=== PATIENT | female | born 1945 | race Caucasian/White ===

== ENCOUNTER 2017-03-17 21:09 | Emergency (ER) | payer OTHER ==
[~2017-03-17 21:09] MED LIST: ANTIVERT25 MG PO; BENZONATATE200 MG PO; HYDRODIURIL 112.5 M1 PO; LOSARTAN POTASS25 MG PO; NASONEX0.05 MG/Ac NS; PRAVASTATIN SOD20 MG PO; ZITHROMAX Z-PA250 M1 PO; ZOFRAN 4 MG TABL4 MG PO; ZOFRAN ODT4 M1 SL
[2017-03-18 01:06] LABS: ABSOLUTE BASOPHIL COUNT 0 /CUMM (0.0-0.2); ABSOLUTE EOSINOPHIL COUNT 0.7 /CUMM (0.0-0.7); ABSOLUTE GRANULOCYTE CT 3.5 /CUMM (1.4-6.5); ABSOLUTE LYMPH COUNT 2.7 /CUMM (1.2-3.4); ABSOLUTE MONOCYTE COUNT 0.6 /CUMM (0.10-0.60); BASOPHIL % 0.3 % (0.0-2.0); GRANULOCYTE % 46.9 % (42.2-75.2); HEMATOCRIT 37.8 % (37-47); MEAN CORPUSCULAR HGB 29.5 PG (27.0-31.0); MEAN CORPUSCULAR VOLUME 86.8 FL (81.0-99.0); MEAN PLATELET VOLUME 9.6 FL (7.4-10.4); PLATELET COUNT 204 /CUMM (130-400); RBC DISTRIBUTION WIDTH 13.3 % (11.5-14.5); RED BLOOD CELL CT 4.36 /CUMM (4.20-5.40); WHITE BLOOD CELL COUNT 7.5 /CUMM (4.8-10.8)
--- NOTE | 2017-03-18 01:52 | ED GI/GU/ABDOMINAL COMPLAINT ---
History of Present Illness General Chief Complaint: Female Urogenital Problems Stated Complaint: VAG PAIN Source: patient Exam Limitations: no limitations Vital Signs & Intake/Output Vital Signs & Intake/Output . Allergies Coded Allergies: Penicillins (UNKNOWN 12/15/15) Sulfa (Sulfonamide Antibiotics) (UNKNOWN 12/15/15) cephalexin (UNKNOWN 12/15/15) ciprofloxacin (From CIPRO) (UNKNOWN 12/15/15) codeine (UNKNOWN 12/15/15) morphine (UNKNOWN 12/15/15) propoxyphene (From DARVON) (VOMITING 06/19/16) venom-honey bee (BEE VENOM (HONEY BEE)) (SWELLING AT SITE 12/15/15) Uncoded Allergies: YELLOW JACKET (Intermediate, SWELLING AT SITE 12/15/15) Reconcile Medications Azithromycin (Zithromax Z-Thien) 250 MG CAP 1 DP PO AD SINUSITIS 2 the first day followed by 1 for days 2-5 Benzonatate 200 MG SGL 1 TAB PO TID COUGH Hydrochlorothiazide (Hydrodiuril 12.5 MG Tab) 12.5 MG CAPSULE 1 CAP PO DAILY BP (Reported) Losartan Potassium 25 MG TAB 1 TAB PO DAILY HEART (Reported) Magnesium Citrate 296 ML SOLUTION 296 ML PO TID PRN CONSTIPATION Meclizine (Antivert) 25 MG TABLET 1 TAB PO 4 TIMES/DAY PRN VERTIGO Mometasone Furoate (Nasonex) 0.05 MG/Actuation SPR 1 SPRAY NS DAILY CONGESTION Nitrofurantoin Monohyd/M-Cryst (Macrobid 100 MG Capsule) 100 MG CAPSULE 1 CAP PO BID URINARY TRACT INFECTION with food Ondansetron (Zofran Odt) 4 MG TAB.RAPDIS 1 TAB SL TID PRN NAUSEA Pravastatin (Pravastatin Sodium) 20 MG TAB 1 TAB PO DAILY CHOLESTEROL ( Reported) Triage Nurses Notes Reviewed? yes ? n Is pt currently ? No Onset: Gradual Duration: day(s):, waxing and waning Timing: recent history Quality/Severity: cramping Location: generalized abdomen Radiation: no radiation Activities at Onset: none Prior Abdominal Problems: similar symptoms Modifying Factors: Worsens With: defecating. Associated Symptoms: abdominal pain, dysuria HPI: 71 yo woman h/o constipation presents with diffuse abdominal cramps, consistent with prior episodes of constipation. She also notes increased urination and dysuria. She has no fever, chills, chest pain, shortness of breath. She is otherwise well. Past History Medical History Any Pertinent Medical History? see below for history Neurological: NONE EENT: NONE Cardiovascular: hypertension, hyperlipidemia Respiratory: NONE Gastrointestinal: NONE Hepatic: NONE Renal: NONE Musculoskeletal: NONE Psychiatric: NONE Endocrine: NIDDM Surgical History Surgical History: non-contributory Psychosocial History What is your primary language Wolof Family History Hx Contributory? No Review of Systems Review of Systems Constitutional: Reports: no symptoms. EENTM: Reports: no symptoms. Respiratory: Reports: no symptoms. Cardiovascular: Reports: no symptoms. GI: Reports: no symptoms. Genitourinary: Reports: no symptoms. Musculoskeletal: Reports: no symptoms. Skin: Reports: no symptoms. Neurological/Psychological: Reports: no symptoms. Hematologic/Endocrine: Reports: no symptoms. Immunologic/Allergic: Reports: no symptoms. All Other Systems: Reviewed and Negative Physical Exam Physical Exam General Appearance: well developed/nourished, mild distress Head: atraumatic, normal appearance Eyes: Bilateral: normal appearance. Ears, Nose, Throat, Mouth: hearing grossly normal Neck: normal inspection, supple, full range of motion Respiratory: normal breath sounds, chest non-tender, no respiratory distress, quiet respiration, lungs clear Cardiovascular: regular rate/rhythm Gastrointestinal: normal bowel sounds, soft, non-tender, no organomegaly Rectal: normal inspection, normal rectal tone, heme negative stool Back: normal inspection Core Measures ACS in differential dx? No Severe Sepsis Present: No Septic Shock Present: No Progress Differential Diagnosis: UTI/pyelo, constipation vs other. Plan of Care: Orders Procedure Date/time Status URINALYSIS 03/18 52 Complete TROPONIN LEVEL 03/18 52 Complete LIPASE 03/18 52 Complete COMPREHENSIVE METABOLIC PANEL 03/18 52 Complete CBC WITHOUT DIFFERENTIAL 03/18 52 Complete AMYLASE 03/18 52 Complete Laboratory Tests 03/18/17 0140: Urine Color YEL, Urine Clarity CLEAR, Urine pH 6.0, Ur Specific [place] 1.020, Urine Protein NEG, Urine Ketones NEG, Urine Nitrite NEG, Urine Bilirubin NEG, Urine Urobilinogen 0.2, Ur Leukocyte Esterase MOD H, Ur Microscopic SEDIMENT EXAMINED, Urine RBC 3-5, Urine WBC 15-25 H, Ur Epithelial Cells RARE, Urine Bacteria FEW H, Urine Hemoglobin TRACE-LYSED, Urine Glucose NEG 03/18/17 0100: Anion Gap 10, Estimated GFR > 60, BUN/Creatinine Ratio 17.5, Glucose 117 H, Calcium 9.9, Total Bilirubin 0.3, AST 21, ALT 38, Alkaline Phosphatase 85, Troponin I < 0.01, Total Protein 6.8, Albumin 4.0, Globulin 2.8, Albumin/ Globulin Ratio 1.4, Amylase 64, Lipase 35, CBC w Diff NO MAN DIFF REQ, RBC 4.36, MCV 86.8, MCH 29.5, RDW 13.3, MPV 9.6, Gran % 46.9, Lymphocytes % 36.3, Monocytes % 7.5, Eosinophils % 9.0 H, Basophils % 0.3, Absolute Granulocytes 3.5, Absolute Lymphocytes 2.7, Absolute Monocytes 0.6, Absolute Eosinophils 0.7, Absolute Basophils 0, PUBS MCHC 34.0 Diagnostic Imaging: Viewed by Me: CT Scan. Discussed w/RAD: CT Scan. Radiology Impression: abd/pelvic ct... left adrenal adenomas, no acute change... full report below. Initial ED EKG: normal axis, normal intervals, normal p-waves, normal QRS complex, normal sinus rhythm Comments: PATIENT: HUSAM GEORGES PRESENT AGE: 71 PATIENT ACCOUNT NO: [id number] : 44 LOCATION: [facility] ORDERING PHYSICIAN: MACK BOWDEN MD SERVICE DATE: 03/18/17 EXAM TYPE: CAT - CT ABD & PELVIS W/O IV CONTRAS EXAMINATION: CT ABDOMEN AND PELVIS WITHOUT CONTRAST CLINICAL INFORMATION: Abdominal pain COMPARISON: 12/01/2009 TECHNIQUE: Multidetector volumetric imaging was performed from the superior aspect of the liver through the pubic symphysis. Sagittal and coronal reformatted images were obtained on the technologist's workstation. DLP: 658 mGy-cm FINDINGS: LUNG BASES: There is a 0.4 cm left lower lobe pulmonary nodule, series 2 image 9. 0.5 cm lingular nodule on series 2 image 5. These are likely unchanged from 2009. LIVER, GALLBLADDER, AND BILIARY TREE: The liver is normal in size, shape, and attenuation. No focal hepatic lesion or biliary ductal dilatation is present. The gallbladder is unremarkable with no evidence of radiopaque gallstones, gallbladder wall thickening, or obvious pericholecystic inflammatory changes. PANCREAS: Fatty atrophy in the region of the head of the pancreas with no focal abnormality. SPLEEN: Unremarkable. ADRENAL GLANDS: Nodular appearance of the left adrenal gland. 2 cm left adrenal adenoma superiorly. 1.5 cm lipid rich adenoma inferiorly. The right adrenal gland is unremarkable. KIDNEYS AND URETERS: The kidneys are normal in size, shape, and attenuation. No hydronephrosis, hydroureter, or calculi seen. No perinephric stranding. BLADDER: Unremarkable. GASTROINTESTINAL TRACT: The stomach and small bowel are unremarkable. No dilated loops of bowel or evidence of obstruction. No colonic wall thickening or inflammatory change. No free air or free fluid. ABDOMINAL WALL: No significant hernia is appreciated. LYMPH NODES: Normal. VASCULAR: Unremarkable. PELVIC VISCERA: The uterus and adnexa are unremarkable. OSSEOUS STRUCTURES: No acute or suspicious osseous abnormality. Mild degenerative changes of the spine. IMPRESSION: No acute findings of the abdomen or pelvis. No acute inflammatory changes. Left adrenal lipid rich adenomas. DICTATED BY: GEE RAINEY,HUBER DATE/TIME DICTATED:03/18/17301 BUS WASHER:GUILLERMO DATE/TIME TRANSCRIBED:03/18/17301 CONFIDENTIAL, DO NOT COPY WITHOUT APPROPRIATE AUTHORIZATION. <Electronically signed in Other Vendor System> SIGNED BY: GEE RAINEY,HUBER 03/18 Departure Departure Disposition: HOME OR SELF CARE Condition: Stable Clinical Impression Primary Impression: Abdominal pain Secondary Impressions: Adenoma of left adrenal gland, Constipation Referrals: CRIS RAINEY,ISIDORO Gallardo (PCP/Family) Departure Forms: Customer Survey General Discharge Information Prescriptions: Current Visit Scripts Nitrofurantoin Monohyd/M-Cryst (Macrobid 100 MG Capsule) 1 CAP PO BID #14 CAP with food Magnesium Citrate 296 ML PO TID PRN CONSTIPATION #6 BOT Comments 03/18/17, 3:38AM.... Pt feels well... labs/ct scan benign.... pt safe for discharge.... gave rx for macrobid for uti. close follow up advised.
[2017-03-18] MEDS ORDERED: MAGNESIUM CITR296 ML PO (02:29)
[2017-03-18] MEDS ORDERED: MACROBID 100 M100 MG PO (02:29)
--- NOTE | 2017-03-18 03:08 | CT SCAN REPORT ---
EXAMINATION: CT ABDOMEN AND PELVIS WITHOUT CONTRAST CLINICAL INFORMATION: Abdominal pain COMPARISON: 12/01/2009 TECHNIQUE: Multidetector volumetric imaging was performed from the superior aspect of the liver through the pubic symphysis. Sagittal and coronal reformatted images were obtained on the technologist's workstation. DLP: 658 mGy-cm FINDINGS: LUNG BASES: There is a 0.4 cm left lower lobe pulmonary nodule, series 2 image 9. 0.5 cm lingular nodule on series 2 image 5. These are likely unchanged from 2010. LIVER, GALLBLADDER, AND BILIARY TREE: The liver is normal in size, shape, and attenuation. No focal hepatic lesion or biliary ductal dilatation is present. The gallbladder is unremarkable with no evidence of radiopaque gallstones, gallbladder wall thickening, or obvious pericholecystic inflammatory changes. PANCREAS: Fatty atrophy in the region of the head of the pancreas with no focal abnormality. SPLEEN: Unremarkable. ADRENAL GLANDS: Nodular appearance of the left adrenal gland. 2 cm left adrenal adenoma superiorly. 1.5 cm lipid rich adenoma inferiorly. The right adrenal gland is unremarkable. KIDNEYS AND URETERS: The kidneys are normal in size, shape, and attenuation. No hydronephrosis, hydroureter, or calculi seen. No perinephric stranding. BLADDER: Unremarkable. GASTROINTESTINAL TRACT: The stomach and small bowel are unremarkable. No dilated loops of bowel or evidence of obstruction. No colonic wall thickening or inflammatory change. No free air or free fluid. ABDOMINAL WALL: No significant hernia is appreciated. LYMPH NODES: Normal. VASCULAR: Unremarkable. PELVIC VISCERA: The uterus and adnexa are unremarkable. OSSEOUS STRUCTURES: No acute or suspicious osseous abnormality. Mild degenerative changes of the spine. IMPRESSION: No acute findings of the abdomen or pelvis. No acute inflammatory changes. Left adrenal lipid rich adenomas.
[2017-03-18 03:38] VITALS: BP 124/75
== END 2017-03-18 03:39 ==
LOC: ERH
PROVIDERS: Pediatrics
DX: D35.02 Benign neoplasm of left adrenal gland (principal); K59.00 Constipation, unspecified
CPT/HCPCS: 74176; 81001